=== PATIENT | female | born 1960 | race Caucasian/White ===

== ENCOUNTER 2019-11-07 13:35 | Emergency (ER) | payer BC, SELFPAY ==
[2019-11-07 13:41] VITALS: BP 100/59; PULSE 86; RESP 24; TEMP 36.9; O2SAT 86; BMI 40.6
--- NOTE | 2019-11-07 13:59 | XRR_ITS ---
PROCEDURE INFORMATION: Exam: XR Chest, 1 View Exam date and time: 11/07/2019 2:01 PM Age: 59 years old Clinical indication: Shortness of breath; Additional info: SOB TECHNIQUE: Imaging protocol: XR of the chest Views: 1 view. COMPARISON: No relevant prior studies available. FINDINGS: Lungs: There is interstitial prominence compatible with fibrosis, bronchitis, viral pneumonitis or mild interstitial edema. Mild bibasilar ground-glass opacity is also noted compatible with mild pneumonitis or atelectasis. Pleural space: Unremarkable. No pleural effusion. No pneumothorax. Heart/Mediastinum: Unremarkable. No cardiomegaly. Bones/joints: No acute abnormality. XR/XR chest 1V portable [id number] IMPRESSION: 1. There is interstitial prominence compatible with fibrosis, bronchitis, viral pneumonitis or mild interstitial edema. 2. Mild bibasilar ground-glass opacity is also noted compatible with mild pneumonitis or atelectasis.
[2019-11-07 14:11] VITALS: BP 120/59; PULSE 78; RESP 18; O2SAT 99
[2019-11-07] MEDS: lactated ringers 1,000 ML 75 ML IV (14:21)
[2019-11-07] MEDS: dexamethasone 10 mg/mL INJ IVP (14:21)
[2019-11-07 14:29] LABS: ABG PCO2 35.4 mmHg (35-45); ABG PH Result 7.42 (7.35-7.45); Arterial Blood Gas Hematocrit 41.6 % (37-47); Base Excess ABG -1.3 mmol/L (-2.0-2.0); Blood Gas Allen Test Pos; Blood Gas LPM 1.5 %; Blood Gas Operator Identificat glc; Blood Gas Sample Site Radial, left; Blood Gas Sample Type Arterial; HCO3 ABG 22.8 mmol/L (22-26); Oxygen Device NC; PO2 ABG 84.2 mmHg (80.0-100.0)
[2019-11-07 14:39] LABS: Basophils % 0.2 %; Hemoglobin 12.9 g/dL (11.5-15.3); Lymphocytes # 1.3 10^3/uL (0.8-4.8); Lymphocytes % 30.3 %; Mean Corpuscular HGB Conc 31.5 g/dL (30.0-36.0); Mean Corpuscular Hemoglobin 29.9 pg (28.0-34.0); Mean Corpuscular Volume 94.9 fL (81-99); Mean Platelet Volume 10.5 fL (7.4-10.4); Monocytes # 0.3 10^3/uL (0.2-0.9); Monocytes % 7.2 %; Neutrophils # 2.54 10^3/uL (1.8-7.7); Neutrophils % 61.1 %; Nucleated Red Blood Cells % 0 %; Platelet Count 193 10^3/cmm (130-400); Red Blood Count 4.32 10^6/uL (4.1-5.3); Red Cell Distribution Width 13.1 % (12.1-15.1); White Blood Count 4.2 10^3/uL (4.0-10.0)
[2019-11-07 15:04] LABS: Lactic Sepsis W/Reflex 1.9 mmol/L (0.5-2.2)
[2019-11-07 15:09] LABS: Alanine Aminotransferase 74 U/L (0-33); Albumin Level 3.6 g/dL (3.5-5.2); Alkaline Phosphatase 111 IU/L (35-105); Anion Gap 14.5 (5-19); Aspartate Amino Transferase 182 U/L (0-32); Blood Urea Nitrogen 10 mg/dL (8-23); Calcium 9.3 mg/dL (8.5-10.5); Carbon Dioxide 25 mmol/L (22-29); Chloride 104 mmol/L (98-107); Globulin 3.6 g/dL (1.3-4.6); Glomerular Filtration Rate 73.2 mL/min (90-130); Glucose 131 mg/dL (65-115); NT Pro B Type Natriuretic Pept 190 pg/mL (0-125); Osmolality Calculated 286 mOsm/kg (285-295); Potassium 4.5 mmol/L (3.5-5.1); Sodium 139 mmol/L (136-145); Total Bilirubin 0.7 mg/dL (0.15-1.2); Total Protein 7.2 g/dL (6.6-8.7)
--- NOTE | 2019-11-07 15:11 | ED_ITS ---
HPI - SOB/Dyspnea General: Chief Complaint: Shortness of Breath/Dyspnea Stated Complaint: covid positive Time Seen by Provider: 11/07/19 13:59 Source: patient Mode of arrival: ambulatory History of Present Illness: HPI Narrative: 59-year-old female states started having cough fever and shortness of breath roughly 11 days ago. She states that last Saturday she did test positive for COVID. She states that she started having increasing shortness of breath and body aches today. Patient's oxygen saturation here is 98% on room air. She had a slight cough. She denies any worsening or improving factors. MD elicited complaint: shortness of breath Associated symptoms: Reports fever(s); Deny abdominal pain, chest pain, nausea or vomiting Review of Systems Const: Reports: fever(s) and body aches; Denies: chills or change in appetite Eyes: Denies: blurry vision or eye discomfort ENMT: Denies: throat pain or dental pain Card: Denies: chest pain Resp: Reports: dyspnea GI: Denies: abdominal pain, nausea, vomiting or diarrhea : Denies: dysuria Musc: Denies: neck pain or back pain Skin/Breast: Denies: rash Neuro: Denies: headache(s) Psych: Denies: depression Melo/Lymph: Denies: easy bruising All/Imm: Denies: urticaria Physical Exam Const: COMMON NORMALS: no acute distress, patient oriented x3 and healthy appearing HENMT: COMMON NORMALS: normocephalic and atraumatic HEAD & SCALP: normocephalic and atraumatic Eye: COMMON NORMALS: Equal, round and reactive pupils present and EOMs intact bilaterally PUPIL: Yes Equal, round and reactive pupils present Neck/C-Spine: COMMON NORMALS: full ROM and supple Chest: COMMONS NORMALS: normal inspection of the chest and normal palpation of entire chest wall Resp: COMMON NORMALS: normal respiratory effort, No retractions, No use of accessory muscles and clear to auscultation bilaterally AUSCULTATION: clear to auscultation bilaterally Cardio: COMMON NORMALS: regular rate, regular rhythm and No murmurs present (Cardio) RATE: regular rate RHYTHM: regular rhythm GI: COMMON NORMALS: Normal to inspection, nondistended, normoactive bowel sounds present, Soft to palpation, non-tender and no masses PALPATION: Yes Soft to palpation Extremity: COMMON NORMALS: normal to inspection and full ROM Neuro: COMMON NORMALS: patient oriented x3, moves all extremities and no focal motor deficits Psych: COMMON NORMALS: mental status grossly normal, Normal thought process present and cooperative THOUGHT PROCESS: Normal thought process present Skin: COMMON NORMALS: no rashes or lesions noted and no wounds GENERAL SKIN EXAM: no rashes or lesions noted Course Vital Signs: Vital signs: Vital Signs Temperature 98.4 F 11/07/19 13:41 Pulse Rate 82 11/07/19 18:22 Respiratory Rate 18 11/07/19 18:22 Blood Pressure 157/76 11/07/19 18:22 Pulse Oximetry 96 11/07/19 18:22 MDM - SOB/Dyspnea MDM Narrative: Medical decision making narrative: Zully presents here with shortness of breath has COVID-19. Patient is borderline hypoxic with pulse ox and 92. Patient x-ray shows a pneumonitis. I spoke to my hospitalist Dr. Abarca who felt patient needed to go to a higher level of care as we do not have any antiviral available here. I spoke to Dr. White at [facility] being filled and will transfer there Lab Data: Labs: Lab Results 11/07/19 11/07/19 11/07/19 Range/Units 14:00 14:00 14:00 WBC 4.2 (4.0-10.0) 10^3/ uL RBC 4.32 (4.1-5.3) 10^6/u L Hgb 12.9 (11.5-15.3) g/dL Hct 41.0 (37.0-47.0) % MCV 94.9 (81-99) fL MCH 29.9 (28.0-34.0) pg MCHC 31.5 (30.0-36.0) g/dL RDW 13.1 (12.1-15.1) % Plt Count 193 (130-400) 10^3/c mm MPV 10.5 H (7.4-10.4) fL Neut % (Auto) 61.1 % Lymph % (Auto) 30.3 % Richardson % (Auto) 7.2 % Eos % (Auto) 1.0 % Baso % (Auto) 0.2 % Neut # (Auto) 2.54 (1.8-7.7) 10^3/u L Lymph # (Auto) 1.3 (0.8-4.8) 10^3/u L Richardson # (Auto) 0.3 (0.2-0.9) 10^3/u L Eos # (Auto) 0.0 (0.0-0.8) 10^3/u L Baso # (Auto) 0.0 (0.0-0.1) 10^3/u L Nucleated RBC % (a uto) 0 % Nucleated RBCs # 0.0 /100WBC Fibrinogen 629 H (174-498) mg/dL D-Dimer 0.73 H (0-0.59) ug/mIFE U Specimen Type Sample Site ABG pH (7.35-7.45) ABG pCO2 (35-45) mmHg ABG pO2 (80.0-100.0) mmH g ABG HCO3 (22-26) mmol/L ABG Base Excess (-2.0-2.0) mmol/ L Wesly Test Hematocrit (37-47) % O2 Delivery Device O2 Liters/Min % FiO2 % Poultry Hanger ID Sodium 139 (136-145) mmol/L Potassium 4.5 (3.5-5.1) mmol/L Chloride 104 (98-107) mmol/L Carbon Dioxide 25 (22-29) mmol/L Anion Gap 14.5 (5-19) BUN 10 (8-23) mg/dL Creatinine 0.8 (0.5-0.9) mg/dL GFR Calculation 73.2 L (90-130) mL/min Glucose 131 H (65-115) mg/dL Calculated Osmolal ity 286 (285-295) mOsm/k g Lactic Acid (0.5-2.2) mmol/L Calcium 9.3 (8.5-10.5) mg/dL Total Bilirubin 0.7 (0.15-1.2) mg/dL AST 182 H (0-32) U/L ALT 74 H (0-33) U/L Alkaline Phosphata se 111 H (35-105) IU/L C-Reactive Protein 9.1 H (0.0-4.9) mg/L NT-Pro-B Natriuret Pep 190 H (0-125) pg/mL Total Protein 7.2 (6.6-8.7) g/dL Albumin 3.6 (3.5-5.2) g/dL Globulin 3.6 (1.3-4.6) g/dL 11/07/19 11/07/19 Range/Units 14:00 14:18 WBC (4.0-10.0) 10^3/ uL RBC (4.1-5.3) 10^6/u L Hgb (11.5-15.3) g/dL Hct (37.0-47.0) % MCV (81-99) fL MCH (28.0-34.0) pg MCHC (30.0-36.0) g/dL RDW (12.1-15.1) % Plt Count (130-400) 10^3/c mm MPV (7.4-10.4) fL Neut % (Auto) % Lymph % (Auto) % Richardson % (Auto) % Eos % (Auto) % Baso % (Auto) % Neut # (Auto) (1.8-7.7) 10^3/u L Lymph # (Auto) (0.8-4.8) 10^3/u L Richardson # (Auto) (0.2-0.9) 10^3/u L Eos # (Auto) (0.0-0.8) 10^3/u L Baso # (Auto) (0.0-0.1) 10^3/u L Nucleated RBC % (a uto) % Nucleated RBCs # /100WBC Fibrinogen (174-498) mg/dL D-Dimer (0-0.59) ug/mIFE U Specimen Type Arterial Sample Site Radial, left ABG pH 7.42 (7.35-7.45) ABG pCO2 35.4 (35-45) mmHg ABG pO2 84.2 (80.0-100.0) mmH g ABG HCO3 22.8 (22-26) mmol/L ABG Base Excess -1.3 (-2.0-2.0) mmol/ L Wesly Test Pos Hematocrit 41.6 (37-47) % O2 Delivery Device Nc O2 Liters/Min 1.5 % FiO2 26.0 % Poultry Hanger ID glc Sodium (136-145) mmol/L Potassium (3.5-5.1) mmol/L Chloride (98-107) mmol/L Carbon Dioxide (22-29) mmol/L Anion Gap (5-19) BUN (8-23) mg/dL Creatinine (0.5-0.9) mg/dL GFR Calculation (90-130) mL/min Glucose (65-115) mg/dL Calculated Osmolal ity (285-295) mOsm/k g Lactic Acid 1.9 (0.5-2.2) mmol/L Calcium (8.5-10.5) mg/dL Total Bilirubin (0.15-1.2) mg/dL AST (0-32) U/L ALT (0-33) U/L Alkaline Phosphata se (35-105) IU/L C-Reactive Protein (0.0-4.9) mg/L NT-Pro-B Natriuret Pep (0-125) pg/mL Total Protein (6.6-8.7) g/dL Albumin (3.5-5.2) g/dL Globulin (1.3-4.6) g/dL Imaging Data^: CXR: Attestation: I personally reviewed and interpreted this imaging study as follows: Radiologist's impression: [address] [address] XRay Report Signed Patient: Rae Snider Unit #: [id number] : 1960 Age/Sex: 59 / F ADM Date: 11/07/19 Loc: ER Room/Bed: Attending Dr: Ordering Provider/Ordering MD: Lily Morris MD Date of Service: 11/07/19 Procedure(s): XR chest 1V portable [id number] Accession Number(s): [id number] Report Number: [id number] PROCEDURE INFORMATION: Exam: XR Chest, 1 View Exam date and time: 11/07/2019 2:01 PM Age: 59 years old Clinical indication: Shortness of breath; Additional info: SOB TECHNIQUE: Imaging protocol: XR of the chest Views: 1 view. COMPARISON: No relevant prior studies available. FINDINGS: Lungs: There is interstitial prominence compatible with fibrosis, bronchitis, viral pneumonitis or mild interstitial edema. Mild bibasilar ground-glass opacity is also noted compatible with mild pneumonitis or atelectasis. Pleural space: Unremarkable. No pleural effusion. No pneumothorax. Heart/Mediastinum: Unremarkable. No cardiomegaly. Bones/joints: No acute abnormality. XR/XR chest 1V portable [id number] IMPRESSION: 1. There is interstitial prominence compatible with fibrosis, bronchitis, viral pneumonitis or mild interstitial edema. 2. Mild bibasilar ground-glass opacity is also noted compatible with mild pneumonitis or atelectasis. Discharge Plan Discharge Patient Disposition: Xfer Other Clinical Impression: COVID-19 Condition: Stable Referrals: Radha Fabian MD [Primary Care Provider] - Coding Level of Care Code ED Chief Accounting Officer for Chg Fwd Exam Comprehensive
[2019-11-07 15:26] LABS: Fibrinogen 629 mg/dL (174-498)
[2019-11-07 15:30] LABS: D Dimer 0.73 ug/mIFEU (0-0.59)
[2019-11-07 15:37] LABS: C Reactive Protein 9.1 mg/L (0.0-4.9)
[2019-11-07 16:39] VITALS: BP 159/62; PULSE 82; RESP 18; O2SAT 97
[2019-11-07 17:07] VITALS: BP 138/53; PULSE 82; RESP 16; O2SAT 96
[2019-11-07 18:22] VITALS: BP 157/76; PULSE 82; RESP 18; O2SAT 96
[2019-11-07] MEDS: sodium chloride 0.9% 1,000 ML 999 ML IV (20:48)
[2019-11-07 23:22] VITALS: BP 162/78; PULSE 84; RESP 18; O2SAT 93
== END 2019-11-07 23:23 | disposition other institution (70) ==
PROVIDERS: Emergency Provider Emergency Medicine; PCP Family Medicine
DX: U07.1 COVID-19 (principal)
CPT/HCPCS: 12345; 36600; 71045; 80053; 82803; 83605; 83880; 85025; 85378; 85384; 86140; 87040; 87077; 87205; 96365; 96366; 96375; 99283; 99284; J1100; J7030

== ENCOUNTER 2024-08-06 15:10 | Outpatient (CLI) | payer MEDICARE, OTHER, SELFPAY ==
--- NOTE | 2024-08-06 15:16 | XR_ITS ---
WS: [id number] DEXA (DUAL ENERGY X-RAY ABSORPTIOMETRY) Bone mineral density was performed using a [employer] machine. HISTORY: ASYMPTOMATIC POSTMENOPAUSAL STATUS COMPARISON: None available. Lumbar spine BMD (L1-L4): 1.473 g/cm2 T score: 2.4 Z score: 3.2 Total hip BMD: Left: 1.163 g/cm2. T score: 1.2 Z score: 1.8 Right: 1.188 g/cm2. T score: 1.4 Z score: 2.0 10 year probability of a major osteoporotic fracture is 5.8%. XR/XR DEXA axial skeleton* [id number] IMPRESSION: NORMAL BONE MINERAL DENSITY based upon the WHO classification for females.
--- NOTE | 2024-08-06 15:16 | XR_ITS ---
WS: [id number] XR lumbar spine min 4V [id number] REASON FOR EXAM: LUMBAR/LUMBOSACRAL DISC DEGENERATION FINDINGS: Mild rotatory levoscoliosis. Relatively normal lordosis. No significant vertebral body abnormality. Moderate narrowing of the L1-L2 and L2-L3 disc spaces with moderate endplate sclerosis and osteophytosis. In the remainder of the lumbar spine there is mild disc space narrowing and mild osteophytosis. Mild anterolisthesis of L3 in relation to L2. This listhesis does not change significantly during flexion or extension. No other significant vertebral body movement during flexion and extension. Mild degenerative arthropathy in the facet joints L4-S1. XR/XR lumbar spine min 4V [id number] IMPRESSION: Moderate degenerative spondylosis as above.
== END 2024-08-06 15:11 | disposition home or self-care (01) ==
LOC: RAD 15:13
PROVIDERS: PCP Internal Medicine; Visit Provider Internal Medicine
DX: Z78.0 Asymptomatic menopausal state (principal); M41.86 Other forms of scoliosis, lumbar region; M51.369 Other intervertebral disc degeneration, lumbar region without mention of lumbar back pain or lower extremity pain; M25.78 Osteophyte, vertebrae; M43.16 Spondylolisthesis, lumbar region; M47.897 Other spondylosis, lumbosacral region
CPT/HCPCS: 72110; 77080